=== PATIENT | female | born 1945 | race Caucasian/White ===

== ENCOUNTER 2022-08-11 05:59 | Day surgery (SDC) | payer OTHER ==
[~2022-08-11] VITALS: Ht 154.9 cm; Wt 66.2 kg
[2022-08-11] MEDS ORDERED: fentaNYL citrate 0.05 MG/ML VIAL ONE (08:11)
[2022-08-11] MEDS ORDERED: LIDOCAINE 2% 100 MG/5 ML UJET TP ONE (08:12)
[2022-08-11] MEDS ORDERED: fentaNYL citrate 0.05 MG/ML VIAL IVP ONE (09:35)
== END 2022-08-11 09:55 | disposition home or self-care (01) ==
LOC: MDS 05:59 → MMU 06:26 → MDS 09:55
PROVIDERS: ATTEND Internal Medicine Gastroenterology
DX: Z12.11 Encounter for screening for malignant neoplasm of colon (principal); D12.2 Benign neoplasm of ascending colon; K57.30 Diverticulosis of large intestine without perforation or abscess without bleeding; E05.90 Thyrotoxicosis, unspecified without thyrotoxic crisis or storm; I10 Essential (primary) hypertension; Z79.899 Other long term (current) drug therapy; Z20.822 Contact with and (suspected) exposure to COVID-19
CPT/HCPCS: 45385; 87426; J3010